=== PATIENT | female | born 1935 | race Hispanic/Latino ===

== ENCOUNTER → 2023-07-30 | Outpatient (CLI) | payer MEDICARE ==
[~2023-07-30] MED LIST: DEXL60CA3 PO; HYDR10 PO; LEVO75TA10 PO; LISI20TA24 PO; POTA99TA4 PO; ROSU10TA28 PO; VIT1CAPS47 PO; [UNRECOGNIZED DRUG - CODE] PO
== END | disposition home or self-care (01) ==
LOC: RAH 12:35
PROVIDERS: ATTEND Internal Medicine
DX: I08.3 Combined rheumatic disorders of mitral, aortic and tricuspid valves (principal); R01.1 Cardiac murmur, unspecified
CPT/HCPCS: 93306

== ENCOUNTER → 2023-10-16 | Outpatient (CLI) | payer MEDICARE | END | disposition home or self-care (01) | LOC: SHCH 13:27 | PROVIDERS: ATTEND Internal Medicine Cardiovascular Disease | DX: I35.0 Nonrheumatic aortic (valve) stenosis (principal) | CPT/HCPCS: 93306 ==

== ENCOUNTER → 2024-10-11 | Outpatient (CLI) | payer MEDICARE ==
[~2024-10-11] MED LIST changes: -ROSU10TA28 PO; +ROSU10TA72 PO
== END | disposition home or self-care (01) ==
LOC: SHCH 10:41
PROVIDERS: ATTEND Internal Medicine Cardiovascular Disease
DX: R01.1 Cardiac murmur, unspecified (principal)
CPT/HCPCS: 93306

== ENCOUNTER → 2025-04-28 | Outpatient (CLI) | payer MEDICARE, MEDICAID ==
--- NOTE | 2025-04-28 14:04 | HMCIMG ---
SHOULDER COMP 2+VWS LT HISTORY: Pain COMPARISON: None TECHNIQUE: 2 images of the left shoulder were obtained. FINDINGS: There is no acute displaced fracture or dislocation. Degenerative changes are seen. IMPRESSION: 1. Findings as described above.
--- NOTE | 2025-04-28 14:12 | HMCIMG ---
SKULL LTD 2-3VW HISTORY: Status post fall COMPARISON: None TECHNIQUE: 4 images of skull were obtained. FINDINGS: There is no acute displaced fracture or dislocation. IMPRESSION: 1. Findings as described above.
--- NOTE | 2025-04-28 14:14 | HMCIMG ---
CERV SPINE 2-3VWS HISTORY: Unspecified fall COMPARISON: None FINDINGS: 4 images of cervical spine were obtained. 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 Disc space narrowings are seen at C3-4, C4-5 and C5-6 levels. There is straightening of normal lordotic curvature which may be related to muscle spasm or positioning. No loss of vertebral height is seen. No fracture or dislocation is seen. Degenerative changes are seen. IMPRESSION: 1. No fracture is seen.
== END | disposition home or self-care (01) ==
LOC: RAH 12:54
PROVIDERS: ATTEND Internal Medicine
DX: S09.90XA Unspecified injury of head, initial encounter (principal); M47.812 Spondylosis without myelopathy or radiculopathy, cervical region; M48.02 Spinal stenosis, cervical region; M54.2 Cervicalgia; M25.512 Pain in left shoulder; W19.XXXA Unspecified fall, initial encounter; Y93.89 Activity, other specified; Y92.89 Other specified places as the place of occurrence of the external cause; Y99.8 Other external cause status
CPT/HCPCS: 70250; 72040; 73030

== ENCOUNTER → 2025-06-30 | Outpatient (CLI) | payer MEDICARE, MEDICAID ==
--- NOTE | 2025-07-04 13:29 | HMCIMG ---
CLINICAL INDICATION: Age-related osteoporosis without current pathological fracture COMPARISON: None available TECHNIQUE: Bone densitometry is performed of the lumbar spine and left hip. FINDINGS: Total BMD of lumbar spine is 0.8-4 g/cm2 with a T-score of -2.0 and Z-score is not obtained. Total BMD of left hip is 0.757 g/cm2 with a T-score of -1.5 and Z-score is not obtained. FRAX SCORE: The 10 year fracture risk for a major osteoporotic fracture and hip fracture 12% IMPRESSION: 1. 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 Would recommend follow-up in 13 months World Health Organization criteria for BMD interpretation classify patients as Normal (T-score at or above -1.0), Osteopenic (T-score between -1.0 and -2.5), or Osteoporotic (T-score at or below -2.5). FRAX SCORE: A. All treatment decisions require clinical judgment and consideration of individual patient factors, including patient preferences, comorbidities, previous drug use, risk factors not captured in the FRAX model (e.g., frailty, falls, vitamin D deficiency, increased bone turnover, interval significant decline in bone density) and possible [id number]-estimation of fracture risk by FRAX. B. In addition, the NOF Guide recommends that FDA-approved medical therapies be considered in postmenopausal women and men age greater than or equal to 50 years with a: i. Hip or vertebral (clinical or morphometric) fracture. ii. T-score of less than or equal to -2.5 at the spine or hip. iii. Ten-year fracture probability by FRAX of greater than or equal to 3% for hip fracture of greater than or equal to 20% for major osteoporotic fracture.
== END | disposition home or self-care (01) ==
LOC: RAH 11:08
PROVIDERS: ATTEND Internal Medicine
DX: M81.0 Age-related osteoporosis without current pathological fracture (principal); M85.89 Other specified disorders of bone density and structure, multiple sites
CPT/HCPCS: 77080